=== PATIENT | female | born 1990 | race Caucasian/White ===

== ENCOUNTER → 2019-11-17 | Outpatient (CLI) | payer SELFPAY ==
[~2019-11-17] MED LIST: LEVEMIR100 U/ML SQ; MOTRIN 800800 MG/TAB PO; PERCOCET 325 MG1 TA2 PO; PRENATAL TABLET PO; TIROSINT75 MC1 PO
== END ==
LOC: COL.LAB
DX: Z20.828 Contact with and (suspected) exposure to other viral communicable diseases (principal)

== ENCOUNTER 2019-11-21 07:17 | Inpatient (IN) | payer SELFPAY ==
[2019-11-21] VITALS (15 sets, daily range): BP systolic 107–154; BP diastolic 46–99; PULSE 84–108; TEMP 97.7–98.4
[~2019-11-21] VITALS: Ht 160.1 cm; Wt 114.1 kg
--- NOTE | 2019-11-21 10:50 | NUR ---
Patient ambulates to room 220, changed into gown, FHR/TOCO monitors placed and explained. Patient denies any regular contractions/leaking of fluid/vaginal bleeding/decreased movement. Blood sugar-87 Plan of care discussed. Assessment completed and consents gone over and signed/pospartum packet given. 1115: IV started in left hand, blood obtained and to lab, NS infusing. Patient prepped for at this time.
[2019-11-21] MEDS ORDERED: TIROSINT75 MC1 PO (11:14)
[2019-11-21] MEDS ORDERED: LEVEMIR100 U/ML SQ (11:15)
[2019-11-21] MEDS ORDERED: PRENATAL TABLET PO (11:15)
[2019-11-21 12:41] LABS: BASO % 0.2 % (0.0-2.0); EOS # 0.2 (0.0-0.7); EOS % 1.9 % (0-4.0); GRAN # 7.5 (1.4-6.5); HEMOGLOBIN 10.7 g/dl (12.5-16.0); LYMPH # 2.5 (1.2-3.4); LYMPH % 22.4 % (20.0-51.0); MEAN CELL VOLUME 83 fl (80.0-100.0); MEAN CORPUSCULAR HEMOGLOBIN 26 pg (27.0-31.0); MEAN CORPUSCULAR HGB CONC 32 g/dl (33.0-37.0); MEAN PLATELET VOLUME 10.6 fl (7.4-10.4); MONO % 9.1 % (1.7-9.3); PLATELET COUNT 283 K/mm3 (130-400); RED BLOOD COUNT 4.05 M/mm3 (4.10-5.30); REDCELL DISTRIBUTION WIDTH-CV 14.4 % (11.5-14.5)
[2019-11-21 12:42] LABS: HEMATOCRIT 33.5 % (37.0-47.0)
[2019-11-22] VITALS: BP 137/71; PULSE 92; TEMP 98.5
[2019-11-22 08:41] VITALS: BP 131/67; PULSE 100; TEMP 97.7
--- NOTE | 2019-11-22 13:00 | NUR ---
PATIENT HAS SHOWERED AND INCISION NOTED BY THIS NURSE. WNL, NO OPENINGS REDNESS OR SWELLING NOTED.
[2019-11-22 16:59] VITALS: BP 138/65; PULSE 85; TEMP 97.5
[2019-11-22 22:00] VITALS: BP 138/88; PULSE 98; TEMP 97.4
[2019-11-23 08:55] VITALS: BP 137/82; PULSE 99; TEMP 97.8
[2019-11-23 16:55] VITALS: BP 144/81; PULSE 95; TEMP 98.1
[2019-11-23 19:30] VITALS: BP 133/82; PULSE 98; TEMP 97.3
[2019-11-24 08:30] VITALS: BP 87/52; PULSE 101; TEMP 98.4
[2019-11-24 08:45] VITALS: BP 143/74; PULSE 106
[2019-11-24] MEDS ORDERED: MOTRIN 800800 MG/TAB PO (09:08)
[2019-11-24] MEDS ORDERED: PERCOCET 325 MG1 TA2 PO (09:08)
[2019-11-24 20:25] VITALS: BP 151/100; PULSE 115; TEMP 98.4
[2019-11-24 20:59] VITALS: BP 135/53; PULSE 98
[2019-11-25 07:29] VITALS: BP 133/73; PULSE 101; TEMP 97.5
--- NOTE | 2019-11-25 11:08 | NUR ---
DISCHARGE INSTRUCTIONS GIVEN. QUESTIONS INVITED AND ANSWERED. UNDERSTANDING VERBALIZED.
== END 2019-11-25 12:10 | disposition home or self-care (01) | DRG 788 ==
LOC: OB 07:17
PROVIDERS: ADMIT Obstetrics & Gynecology
PROC: 10D00Z1 Extraction of Products of Conception, Low, Open Approach (ICD-10-PCS; principal; 2019-11-21)
DX: O34.211 Maternal care for low transverse scar from previous cesarean delivery (principal); O24.424 Gestational diabetes mellitus in childbirth, insulin controlled; O99.284 Endocrine, nutritional and metabolic diseases complicating childbirth; E03.9 Hypothyroidism, unspecified; Z3A.39 39 weeks gestation of pregnancy; Z37.0 Single live birth
CPT/HCPCS: J0690; J1885; J2175; J2270; J2370; J2405; J2590; J2791; J3010; J7030; J7120

== ENCOUNTER 2021-04-29 12:28 | Outpatient (CLI) | payer SELFPAY ==
[2021-04-29] VITALS (7 sets, daily range): BP systolic 110–127; BP diastolic 41–81; PULSE 90–101; TEMP 99
[~2021-04-29 12:28] MED LIST changes: +VITAMIN D31000 I1 PO; +VITAMINC1000TA PO
[2021-04-29] MEDS ORDERED: VITAMIN A10k PO (13:11)
== END 2021-04-29 14:55 | disposition home or self-care (01) ==
LOC: EUO 12:28
DX: U07.1 COVID-19 (principal); E66.9 Obesity, unspecified
CPT/HCPCS: M0245